=== PATIENT | male | born 1990 | race Caucasian/White ===

== ENCOUNTER 2016-09-20 07:41 | Observation (INO) | payer OTHER ==
--- NOTE | 2016-09-15 10:40 | NUR ---
voicemail from mother of pt: Ana Lin ([phone]) -pt had PT/INR done this week with the results of 3.6 -wondering about the dosing of warfarin Addendum: 09/15/16 at 1042 by TOBIAS OSORIO LPN per MD travis, Goal INR is between 2.0 and 3.0 Addendum: 09/15/16 at 1639 by TOBIAS OSORIO LPN hold warfarin on Tuesday per Richie Addendum: 09/15/16 at 1643 by TOBIAS OSORIO LPN pt had an apt with Dr. Lin and he suggested to admit at [facility] pt for kidney bx. mother is wondering if Claritarussell will follow pt at the hospital. -waiting for [facility] to reply when to come for admit -pt was advised to stop warfarin the day before -admitting pt possibly on Tuesday09/20/16 or Tuesday09/21/16
[~2016-09-20] VITALS: Ht 172.7 cm; Wt 62.5 kg
[~2016-09-20 07:41] MED LIST: ATOR40TA69 PO; LISI10TA PO; LOV80 SUBQ; PRE20 PO; TORS20TA3 PO; WARF5TAB7 PO
--- NOTE | 2016-09-20 13:10 | NUR ---
Admission 246-2 Pt arrived to room with volunteer. Indep ambulated up to floor and down to room. Mom present.
[2016-09-20 14:12] VITALS: BP 131/91; PULSE 125; O2SAT 97
[2016-09-20] MEDS ORDERED: LISI-571 PO (14:35)
[2016-09-20 14:59] LABS: INR 1.06 ratio
[2016-09-20] MEDS ORDERED: Alum-Mag Hydrox-Simeth 30 mL Suspension PO PRN (16:30)
[2016-09-20] MEDS ORDERED: Polyethylene Glycol (PEG) 17 Gm Powder PO PRN (16:30)
[2016-09-20] MEDS ORDERED: Ondansetron 2 mg/mL 2 mL Inj IVPUSH PRN (16:30)
[2016-09-20 16:39] LABS: BASOPHILS % (AUTO) 0.1 % (0-3); EOSINOPHILS % (AUTO) 0.1 % (0-5); MONOCYTES % (AUTO) 7.6 % (4-12); Mean Corpuscular Hemoglobin 30.3 pg (27.0-35.0); Mean Corpuscular Volume 91.1 fL (81-100); NEUTROPHILS % (AUTO) 73.8 % (40-74); Platelet Count 478 bil/L (150-400)
--- NOTE | 2016-09-20 17:06 | PCM.HPMED ---
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 He is felt to be at severe risk of recurrent clot if having significant hypoalbuminemia and so he has remained on anticoagulation with Warfarin since last year. He has held his Warfarin since 2 -3 days ago in anticipation of coming biopsy. He otherwise denies any new issues complaints. Allergies Coded Allergies: ibuprofen (Unverified Allergy, Severe, kidney fuction, 04/08/16) amoxicillin (Verified Allergy, Intermediate, Nausea,Vomiting, 03/07/16) clavulanic acid (Verified Allergy, Intermediate, Nausea,Vomiting, 03/07/16) Home Medications Enoxaparin 80 Mg SUBQ DAILY Warfarin Sodium 6 Mg PO DAILY Atorvastatin Calcium 40 Mg PO HS Lisinopril 10 Mg PO HS Lisinopril 5 Mg PO DAILY Torsemide 20 Mg PO DIRECTED PRN Prednisone 40 Mg PO DAILY Exam Vital Signs & I/O Vital Sign- Last 8 Hours Date Time Temp Pulse Resp B/P Pulse Ox O2 Delivery O2 Flow Rate FiO2 09/20/16 14:12 36.4 125 131/91 97 Room Air Lab & Micro Results Laboratory Tests Test 09/20/16 14:22 09/20/16 14:40 09/20/16 16:10 Prothrombin Time 11.4sec (8.1-12.5) Prothromb Time International Ratio 1.06ratio Activated Partial Thromboplast Time 25.5sec (22.8-33.0) White Blood Count 13.8th/mm3 (3.8-10.1) Red Blood Count 4.59mil/mm3 (4.40-5.80) Hemoglobin 13.9g/dL (13.8-17.2) Hematocrit 41.8% (41.0-50.0) Mean Corpuscular Volume 91.1fL (81-100) Mean Corpuscular Hemoglobin 30.3pg (27.0-35.0) Mean Corpuscular Hemoglobin Concent 33.3% (32.0-37.0) Red Cell Distribution Width 14.8% (12.3-15.4) Platelet Count 478bil/L (150-400) Neutrophils (%) (Auto) 73.8% (40-74) Lymphocytes (%) (Auto) 18.0% (14-46) Monocytes (%) (Auto) 7.6% (4-12) Eosinophils (%) (Auto) 0.1% (0-5) Basophils (%) (Auto) 0.1% (0-3) Erythrocyte Sedimentation Rate 25mm/hr (0-15) Sodium Level 138mEq/L (134-144) Potassium Level 3.9mEq/L (3.5-5.2) Chloride Level 99mEq/L (97-108) Carbon Dioxide Level 28mmol/L (18-29) Blood Urea Nitrogen 22mg/dL (6-20) Creatinine 0.90mg/dL (0.76-1.27) Estimat Glomerular Filtration Rate 107mL/min (>59) Glucose Level 106mg/dL (60-99) Calcium Level 8.2mg/dL (8.5-10.1) Magnesium Level 1.8mg/dL (1.6-2.6) Total Bilirubin 0.2mg/dL (0.0-1.2) Aspartate Amino Transf (AST/SGOT) 17U/L (0-50) Alanine Aminotransferase (ALT/SGPT) 23U/L (0-44) Alkaline Phosphatase 73U/L (25-150) Total Protein 5.1g/dL (6.4-8.4) Albumin 2.7g/dL (3.4-5.0) Result Diagram: 09/20/16 1610 Review of Systems: Constitutional: Negative, except as otherwise mentioned in the history above. Ophthalmologic: Negative, except as otherwise mentioned in the history above. Cardiovascular: Negative, except as otherwise mentioned in the history above. Respiratory: Negative, except as otherwise mentioned in the history above. Gastrointestinal: Negative, except as otherwise mentioned in the history above. Genitourinary: Negative, except as otherwise mentioned in the history above. Musculoskeletal: Negative, except as otherwise mentioned in the history above. Neurological: Negative, except as otherwise mentioned in the history above. Psychiatric: Negative, except as otherwise mentioned in the history above. Hematologic/Lymphatic: Negative, except as otherwise mentioned in the history above. Allergic/Immunologic: Negative, except as otherwise mentioned in the history above. PMH 1. Celiac Artery Thrombosis 2. Splenic Infarction 3. Bacterial Peritonitis in Mar 2016 4. Acute Kidney Injury in Mar 2016 5. Hypoalbuminemia 6. Nephrotic Syndrome 7. Hyperlipidemia, Mixed, Severe Family History mother with breast cancer Social History Hx Alcohol Use: No Hx Substance Use: Yes (smokes marijuana) Hx Tobacco Use: No Exam Vital Signs Vital Sign - Last Date Time Temp Pulse Resp B/P Pulse Ox O2 Delivery O2 Flow Rate FiO2 09/20/16 14:12 36.4 125 131/91 97 Room Air General: Alert, Cooperative, No Acute Distress Head: Normal Eyes: Scleral Anicteric Nose: Mucous Membr Moist/[place] Mouth: Mucous Membr Moist/[place] Neck: Supple Chest & Lungs: Chest Wall Normal, Clear to auscultation & percussion Cardiovascular: Regular Rate/Rhythm Pulses: NL carotid, radial, femoral, DP, PT Abdomen: Non-tender, Non-distended, Normoactive bowel tones Extremities: Edema (2+ pitting edema in LE bilat up the knees) Skin: Other (no ulcer/rash) Neurological: Grossly Neurologically Intact, Cranial Nerves 2-12 Intact, Normal Speech Lymphatic: Other Lymph Nodes (no sig lymphadenopathy) Lab and Diagnostics Result Diagram: 09/20/16 1610 Assessment & Plan 26-year-old man with 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 # History of minimal change nephrotic syndrome, poa. - discussed with nephrology consult (Dr. Lin). appreciate input and will f/ u w/ recs - check routine labs - plan for U/S guided renal biopsy in am - npo after midnight # Hypercoagulable state due to hypoalbuminemia with prior history of Celiac Artery Thrombosis. poa - INR currently subtherapeutic - continue to hold Coumadin in anticipation of biopsy tomorrow - start heparin drip now and stop at midnight (per recommendation by nephrology) # bilateral LE edema 2ndry to underlying nephrotic syndrome. poa - c/w home dose diuretic Dispo: likely home tomorrow pending uncomplicated renal biopsy GI Prophylaxis: Not indicated Resuscitation Status: CPR: Attempt Resuscitation (discussed and verified with the patient) Time spent 60 min Aron Arzate Sep 20, 2016 17:06
[2016-09-20 17:08] LABS: Magnesium 1.8 mg/dL (1.6-2.6)
[2016-09-20 17:09] LABS: ERYTHROCYTE SEDIMENTATION RATE 25 mm/hr (0-15)
[2016-09-20 17:42] VITALS: PULSE 125
[2016-09-20] MEDS ORDERED: Heparin 5,000 Unit/mL Inj SUBQ ONE (17:50)
[2016-09-20 18:33] VITALS: BP 149/84; PULSE 117; RESP 17; O2SAT 97
[2016-09-20 20:00] VITALS: PULSE 125
--- NOTE | 2016-09-20 21:11 | CONS ---
[address] [address] CONSULTATION REPORT PATIENT: FRANCIE PEPE : 1990 MR#: [id number] ADMIT: 09/20/2016 JOB ID: [id number] DATE OF SERVICE: HISTORY: The patient is a very pleasant but somewhat unfortunate 25-year-old white male, who was admitted to [facility] for a percutaneous renal biopsy. Renal consultation is being sought for further evaluation and management of his nephrotic syndrome. He has a history of minimal change disease which dates back to when he was approximately 2 years of age. At that time, he was seen at [facility] and underwent an open renal biopsy. He was treated with cortical steroids and had a good response. He had been followed and continued to be followed when he and his family moved to the [facility]. At that time, he was followed by the [facility]. At age 15, he began to have evidence of a recrudescence of his minimal change disease with lower extremity edema and anasarca. At that time he was treated with cyclophosphamide and steroids, and he had a good response to this. He had been followed by a irrigator gravity flow and had been pretty much self medicating himself on corticosteroids. In February 2016, he presented to the emergency department with anasarca and extensive edema. At that time, he also had a 40 pound weight gain and shortness of breath. He was admitted, and nephrology was consulted. He was aggressively diuresed and treated with IV high-dose corticosteroids with marked improvement in his condition. Renal ultrasound at that time was unremarkable. In the first part of March, he awoke to left flank pain, which extended throughout his abdomen. In the emergency department, a CT was performed that showed a splenic infarct with possible bowel ischemia, and subsequently evaluation of this showed diffuse thrombosis throughout his celiac trunk. He underwent a surgical procedure by Dr. Anne and has been on warfarin since that time. He has been followed regularly in our office and remains steroid-dependent. I have discussed the possibility of a third biopsy now that it is 11 years later to re-confirm the diagnosis of either minimal change her whether he is part of a certain percentage of patients who convert to focal segmental sclerosis. Prior to going to a more aggressive therapy, I would like to have a biopsy. Otherwise, he states that he is doing well. He denies any recent chest pain, shortness of breath, cough, wheezing, nausea, vomiting, abdominal pain, or lower extremity edema. PAST MEDICAL HISTORY: Significant for minimal change disease as detailed above, nephrotic syndrome secondary to the above hypertension with hypertensive heart disease and hypertensive nephrosclerosis, steroid-induced glucose intolerance/diabetes, hyperlipidemia. PAST SURGICAL HISTORY: Remarkable for the abdominal exploration as detailed above. ALLERGIES: He is not allergic to any food or any medication. SOCIAL HISTORY: He lives with his mother, is normally somewhat ambulatory. He continues to smoke a half a pack of cigarettes and denies any alcohol use. FAMILY HISTORY: Unremarkable for any renal disease. MEDICATIONS: At time of my evaluation, include prednisone, lisinopril, atorvastatin, Lasix as needed. PHYSICAL EXAMINATION: Revealed a well-developed, 26-year-old, white male, who was alert and oriented times three, in no distress at the time of my evaluation. HEENT examination is remarkable for pale sclerae. Neck is supple without adenopathy, thyromegaly or jugular venous distention. Lungs are clear to auscultation. Heart was regular and rhythmical with a soft systolic murmur. Abdomen is soft, without any tenderness, rebound, guarding, masses, or hepatosplenomegaly. Extremities did not show any evidence of any clubbing, cyanosis, or edema. Skin turgor was good. There is no evidence of any rashes. LABORATORY EXAMINATION: A stat PT and INR were obtained at admission and reveal a PT of 11.4 and an INR of 1.06. IMPRESSION: 1. Nephrotic syndrome secondary to minimal change disease. 2. Hyperlipidemia. 3. Hypertension. 4. Hypercoagulable state. RECOMMENDATION: I will make arrangements for him to undergo a percutaneous renal biopsy tomorrow if possible. Once again, I would like to thank you for allowing me to participate in the care of this most pleasant and interesting patient. I will be following him closely with you.
[2016-09-20 22:39] VITALS: BP 152/99; PULSE 110; RESP 16; O2SAT 99
[2016-09-21] VITALS (9 sets, daily range): BP systolic 111–149; BP diastolic 72–96; PULSE 82–119; RESP 16–19; O2SAT 98–100
[2016-09-21 02:08] LABS: Hepatitis A Antibody IgM Negative (Negative); Hepatitis B Core Antibody IgM Negative (Negative)
--- NOTE | 2016-09-21 06:46 | NUR ---
NPO Pt has been NPO since midnight. No complaints of pain or discomfort.
[2016-09-21] MEDS ORDERED: predniSONE 20 mg Tablet PO SCH (08:30)
[2016-09-21] MEDS ORDERED: Influenza (Adult) Vaccine 0.5 mL Syringe IM ONE (10:20)
[2016-09-21] MEDS ORDERED: 0.9% Sodium Chloride 250 ML ONE (12:46)
[2016-09-21] MEDS ORDERED: fentaNYL-PF 50 mCg/mL 2 mL Inj ONE (12:47)
--- NOTE | 2016-09-21 13:54 | PCM.PNMED ---
Subjective Date of Service Sep 21, 2016 Subjective Patient was seen today and ultrasound and I will see her to help with the percutaneous renal biopsy. I reviewed the biopsies with a dissecting microscope and verified the presence of multiple glomeruli. Otherwise she is doing well today and offers no new complaints. Exam Vital Signs Vital Sign - Last Date Time Temp Pulse Resp B/P Pulse Ox O2 Delivery O2 Flow Rate FiO2 09/21/16 10:03 82 09/21/16 07:38 36.7 18 111/72 98 Room Air Intake and Output 09/20/16 09/20/16 09/21/16 Cumulative From/Thru 15:00 23:00 07:00 09/20/16 13:50 - 09/21/16 06:27 Intake Total 400 ml 400 ml Balance 400 ml 400 ml Intake Oral 400 ml 400 ml # Voids 2 2 # Bowel Movements 1 1 Exam Lungs were clear to auscultation. Heart is regular rhythm without murmur. Abdomen is soft without any tenderness rebound guarding masses or hepatosplenomegaly. Extremities no extremity evidence of clubbing, cyanosis, or edema. Skin showed [id number] livedo reticularis in both lower extremities and stridor noted. Lab and Diagnostics Result Diagram: 09/21/16 1200 09/20/16 1610 Assessment & Plan Impression #1 nephrotic syndrome secondary to minimal-change disease, in somebody who has a long-standing history of minimal-change disease versus small percentage that can convert to focal segmental sclerosis and this is her concern and reason we did not biopsy. Recommendation #1 he can go home this evening provided to her emotional problems. He has been instructed to follow up in office in approximately one week and I will discuss the biopsy findings at that time. GI Prophylaxis: Not indicated Resuscitation Status: CPR: Attempt Resuscitation (discussed and verified with the patient) José Lin DO Sep 21, 2016 13:54
--- NOTE | 2016-09-21 14:41 | DRSVH ---
PROCEDURE: US GUIDED RENAL BIOPSY ([id number]) US-guided renal biopsy with sedation analgesia for 15 minutes. INDICATIONS: nephrotic synd TECHNIQUE: The indications, alternatives, benefits, risks, and complications of the procedure were e xplained to the patient. Written informed consent was obtained and placed in the chart. Continuous EKG and hemodynamic monitoring was started by trained personnel. The kidney was examined sonographically, and a site chosen for percutaneous biopsy. The overlying sk in was prepped and draped in a sterile fashion. 1% lidocained was instilled down to the level of the renal capsule. Under direct sonographic guidance, an introducer needle was then advanced into the k idney, through which core biopsies were obtained with a separate needle. [place] were then removed, and a dressing applied to the biopsy site. COMPARISON: None. FINDINGS: Biopsy site: Left kidney. Needle: 20 gauge Temno biopsy needle with introducer trocar. Number of passes: 3 Medications: 1% lidocaine for local anaesthesia. 1.0 mg IV Versed and 50 mcg Fentanyl for conscious sedation for 15 minutes (see nursing records). Complications: None. Laboratories: Samples initially reviewed on site verified presence of glomeruli, then sent to the [facility] per established protocol. IMPRESSION: Successful ultrasound-guided biopsy of the kidney, with pathology results pending. Dictated by: Fermin Wilhelm M.D. on 09/21/2016 at 14:38 Approved by: Fermin Wilhelm M.D. on 09/21/2016 at 14:40
--- NOTE | 2016-09-21 15:30 | NUR ---
Patient brought to [facility] bed 9 for a Left renal biopsy with ultrasound and light conscious sedation- bandage is dry/intact. VS stable throughout recovery procedure. Taking in fluid and food without complications.
--- NOTE | 2016-09-21 16:00 | NUR ---
Social Work Note Screening: D/A: The Pt is a 26 y/o male that was admitted under observation status on 09/20/16 for chronic anticoagulation, chronic kidney disease. [facility] and his insurance is [facility]. His readmission risk score is 3. The Pt lives independently with his mother in [place]. SW met with the Pt to discuss role and Advanced Directives, no needs identified at this time. The Pt declined the need for an Advanced Directive. The Pt will undergo a percutaneous renal biopsy today around 12pm. P: The Pt will likely D/C home this evening with family POV pending uncomplicated renal biopsy. No needs identified at this time, SW to follow if needs arise. TOM Rubio Hot Oiler TOM Murphy
--- NOTE | 2016-09-21 17:38 | PCM.DIMED ---
Discharge Instructions Date of Service Sep 21, 2016 Dates of Hospitalization Sep 20, 2016 at 13:07 Discharge Diagnosis Discharge Diagnosis # Chronic nephrotic syndrome secondary to minimal-change disease versus small chance of converting to focal segmental sclerosis post successful ultrasound- guided biopsy of the kidney on 09/21/16, with pathology results pending. # Hypercoagulable state due to hypoalbuminemia with prior history of Celiac Artery Thrombosis. # Bilateral lower extremity edema due to underlying nephrotic syndrome. Medication Instructions May resume your Lovenox and bridging back to Warfarin (Coumadin) tomorrow Diet Renal Diet Activity No restrictions Call your provider Fever or Chills, Shortness of breath, Bleeding Patient Instructions Seek immediate medical attention if any new or worsening signs or symptoms occur. Follow-up plan 1. Followup at [facility] in 2-3 days to recheck your INR and adjust Coumadin dose as needed 2. Followup with primary care provider in 3-7 days 3. Followup with nephrology (Dr. Lin) in one week and for he final result of renal biopsy [address] [address] Follow-up Provider: José Lin DO [facility] Sep 21, 2016 17:38
--- NOTE | 2016-09-21 17:40 | PCM.DC.MED ---
Discharge Summary Date of Service Sep 21, 2016 Dates of Hospitalization Date of Hospital Admission Sep 20, 2016 at 13:07 Date of Discharge: Sep 21, 2016 Providers: Admitting Physician: José Lin DO Primary Care Physician: John Pickard Attending Physician: José Lin DO Diagnosis at Time of Discharge Diagnosis at Time of Discharge # Chronic nephrotic syndrome secondary to minimal-change disease versus small chance of converting to focal segmental sclerosis post successful ultrasound- guided biopsy of the kidney on 09/21/16, with pathology results pending. # Hypercoagulable state due to hypoalbuminemia with prior history of Celiac Artery Thrombosis. # Bilateral lower extremity edema due to underlying nephrotic syndrome. Consultations 1. Nephrology Procedures Invasive Procedures Date of Service: 09/21/16 1230 PROCEDURE: US GUIDED RENAL BIOPSY ([id number]) US-guided renal biopsy with sedation analgesia for 15 minutes. INDICATIONS: nephrotic synd TECHNIQUE: The indications, alternatives, benefits, risks, and complications of the procedure were explained to the patient. Written informed consent was obtained and placed in the chart. Continuous EKG and hemodynamic monitoring was started by trained personnel. The kidney was examined sonographically, and a site chosen for percutaneous biopsy. The overlying skin was prepped and draped in a sterile fashion. 1% lidocained was instilled down to the level of the renal capsule. Under direct sonographic guidance, an introducer needle was then advanced into the kidney, through which core biopsies were obtained with a separate needle. [place] were then removed, and a dressing applied to the biopsy site. COMPARISON: None. FINDINGS: Biopsy site: Left kidney. Needle: 20 gauge Temno biopsy needle with introducer trocar. Number of passes: 3 Medications: 1% lidocaine for local anaesthesia. 1.0 mg IV Versed and 50 mcg Fentanyl for conscious sedation for 15 minutes (see nursing records). Complications: None. Laboratories: Samples initially reviewed on site verified presence of glomeruli , then sent to the [facility] per established protocol. IMPRESSION: Successful ultrasound-guided biopsy of the kidney, with pathology results pending. Dictated by: Fermin Wilhelm M.D. on 09/21/2016 at 14:38 Approved by: Fermin Wilhelm M.D. 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 He is felt to be at severe risk of recurrent clot if having significant hypoalbuminemia and so he has remained on anticoagulation with Warfarin since last year. He has held his Warfarin since 2 -3 days ago in anticipation of coming biopsy. He otherwise denies any new issues complaints. Hospital Course # Chronic nephrotic syndrome secondary to minimal-change disease versus small chance of converting to focal segmental sclerosis post successful ultrasound- guided biopsy of the kidney on 09/21/16, with pathology results pending. # Hypercoagulable state due to hypoalbuminemia with prior history of Celiac Artery Thrombosis. - on Lovenox to Coumadin bridge - Lovenox and Coumadin on hold for past several day in anticipation of renal biopsy # Bilateral lower extremity edema due to underlying nephrotic syndrome. by day of d/c lungs CTA bilat. Exam Vital Signs (Last) Date Time Temp Pulse Resp B/P Pulse Ox O2 Delivery O2 Flow Rate FiO2 09/21/16 15:49 36.8 118 19 146/83 99 Room Air Test 09/20/16 14:22 09/20/16 14:40 09/20/16 16:10 09/21/16 12:00 Prothrombin Time 11.4sec (8.1-12.5) Prothromb Time International Ratio 1.06ratio Activated Partial Thromboplast Time 25.5sec (22.8-33.0) White Blood Count 13.8th/mm3 (3.8-10.1) Red Blood Count 4.59mil/mm3 (4.40-5.80) Mean Corpuscular Volume 91.1fL (81-100) Mean Corpuscular Hemoglobin 30.3pg (27.0-35.0) Mean Corpuscular Hemoglobin Concent 33.3% (32.0-37.0) Red Cell Distribution Width 14.8% (12.3-15.4) Platelet Count 478bil/L (150-400) Neutrophils (%) (Auto) 73.8% (40-74) Lymphocytes (%) (Auto) 18.0% (14-46) Monocytes (%) (Auto) 7.6% (4-12) Eosinophils (%) (Auto) 0.1% (0-5) Basophils (%) (Auto) 0.1% (0-3) Erythrocyte Sedimentation Rate 25mm/hr (0-15) Sodium Level 138mEq/L (134-144) Potassium Level 3.9mEq/L (3.5-5.2) Chloride Level 99mEq/L (97-108) Carbon Dioxide Level 28mmol/L (18-29) Blood Urea Nitrogen 22mg/dL (6-20) Creatinine 0.90mg/dL (0.76-1.27) Estimat Glomerular Filtration Rate 107mL/min (>59) Glucose Level 106mg/dL (60-99) Calcium Level 8.2mg/dL (8.5-10.1) Magnesium Level 1.8mg/dL (1.6-2.6) Total Bilirubin 0.2mg/dL (0.0-1.2) Aspartate Amino Transf (AST/SGOT) 17U/L (0-50) Alanine Aminotransferase (ALT/SGPT) 23U/L (0-44) Alkaline Phosphatase 73U/L (25-150) Total Protein 5.1g/dL (6.4-8.4) Albumin 2.7g/dL (3.4-5.0) Complement C3 142mg/dL (82-167) Complement C4 39mg/dL (14-44) Hepatitis A IgM Antibody Negative (Negative) Hepatitis B Surface Antigen Negative (Negative) Hepatitis B Core IgM Antibody Negative (Negative) Hepatitis C Antibody <0.1s/co ratio (0.0-0.9) Hepatitis C Comment Comment (.) Hemoglobin 13.3g/dL (13.8-17.2) Test 09/21/16 15:45 09/21/16 16:23 Urine Random Creatinine 94mg/dL (24-392) Urine Random Total Protein 480mg/dL (0-15) Urine Protein/Creatinine Ratio 5.11 Hematocrit 40.0% (41.0-50.0) Discharge Medications Discharge Medications Atorvastatin Calcium (Atorvastatin Calcium) 40 Mg Tablet 40 MG PO HS Prescribed by: ML SCOTT MD Enoxaparin (Lovenox) 80 Mg/0.8 Ml Syringe 80 MG SUBQ DAILY (Reported) Lisinopril (Lisinopril) 10 Mg Tablet 10 MG PO HS (Reported) Lisinopril (Lisinopril) 5 Mg Tablet 5 MG PO DAILY (Reported) Prednisone (PredniSONE) 20 Mg Tablet 40 MG PO DAILY (Reported) Warfarin Sodium (Warfarin Sodium) 5 Mg Tablet 6 MG PO DAILY (Reported) As needed Torsemide (Torsemide) 20 Mg Tablet 20 MG PO DIRECTED PRN PRN edema (Reported ) Additional med instructions May resume your Lovenox and bridging back to Warfarin (Coumadin) tomorrow Followup Plan Disposition: Home Follow-up plan 1. Followup at [facility] in 2-3 days to recheck your INR and adjust Coumadin dose as needed 2. Followup with primary care provider in 3-7 days 3. Followup with nephrology (Dr. Lin) in one week and for he final result of renal biopsy [address] [address] Discharge Diet: Renal Diet Discharge Activity: No restrictions Patient Instructions Seek immediate medical attention if any new or worsening signs or symptoms occur. Follow-up Provider: José Lin DO Provider: [facility] John CHAMPAGNE Time spent 30 min copies to: José Lin DO; [facility] Sep 21, 2016 17:40
[2016-09-21] MEDS ORDERED: LOV80 SUBQ (17:54)
--- NOTE | 2016-09-21 18:19 | NUR ---
Discharge Pt. discharged to home at 1817 in stable condition. Accompanied by pts. mother who will drive. IV and tele dc'd prior to discharge. Educated pt. on lovenox administration. all belongings, scripts and instructions with pt. No questions or concerns.
== END 2016-09-21 18:20 | disposition home or self-care (01) ==
LOC: MOC 13:07
PROVIDERS: ADMIT Internal Medicine Nephrology; ATTEND Internal Medicine Nephrology
DX: N04.9 Nephrotic syndrome with unspecified morphologic changes (principal); N26.9 Renal sclerosis, unspecified; D68.59 Other primary thrombophilia; R60.9 Edema, unspecified; E78.2 Mixed hyperlipidemia; Z79.01 Long term (current) use of anticoagulants; Z79.899 Other long term (current) drug therapy; Z23 Encounter for immunization
CPT/HCPCS: 36415; 50200; 76942; 80053; 82570; 83735; 84156; 85014; 85018; 85025; 85610; 85651; 85730; 86160; 86705; 86709; 87340; 87341; G0378; G0379; G0472; J1644; Q2039